=== PATIENT | male | born 1930 | race Caucasian/White ===

== ENCOUNTER → 2017-10-03 | Outpatient (CLI) | payer MEDICARE, OTHER | LOC: M.CT 12:33 | DX: J45.41 Moderate persistent asthma with (acute) exacerbation (principal); J98.4 Other disorders of lung; I25.10 Atherosclerotic heart disease of native coronary artery without angina pectoris; K44.9 Diaphragmatic hernia without obstruction or gangrene ==

== ENCOUNTER 2018-12-03 12:45 | Inpatient (IN) | payer MEDICARE, OTHER ==
[~2018-12-03] VITALS: Ht 175.3 cm; Wt 80.1 kg
[2018-12-03 12:45] VITALS: BP 80/42
[2018-12-03] MEDS ORDERED: FLONASE 0.05%50 MCG NASAL (12:55)
[2018-12-03] MEDS ORDERED: PROSCAR 5MG TABL5 MG PO (12:55)
[2018-12-03] MEDS ORDERED: LASIX 20 MG TAB20 MG PO (12:56)
[2018-12-03] MEDS ORDERED: METFORMIN HCL500 MG PO (12:56)
[2018-12-03] MEDS ORDERED: LISINOPRIL10 MG PO (12:56)
[2018-12-03] MEDS ORDERED: ZOCOR20 MG PO (12:57)
[2018-12-03] MEDS ORDERED: SINGULAIR 10 MG10 M1 PO (12:57)
[2018-12-03] MEDS ORDERED: ZANTAC 150MG T150 MG PO (12:57)
[2018-12-03] MEDS ORDERED: PROAIR HFA8.5 GM PO (12:57)
[2018-12-03] MEDS ORDERED: SYSTANE BALANCE10 ML OPHTHALMIC (12:57)
[2018-12-03] MEDS ORDERED: FLOMAX0.4 MG PO (12:58)
[2018-12-03 13:31] LABS: ABSOLUTE BASOPHILS 0.1 thou/uL (0.0-0.2); ABSOLUTE EOSINOPHILS 0.1 thou/uL (0.0-0.7); ABSOLUTE LYMPHOCYTES 1.1 thou/uL (0.8-5.3); ABSOLUTE MONOCYTES 0.5 thou/uL (0.0-1.2); ABSOLUTE NEUTROPHILS 5.7 thou/uL (1.6-8.1); BASOPHILS 0.9 %; EOSINOPHILS 0.8 %; HEMATOCRIT 32.9 % (42.0-52.0); HEMOGLOBIN 11.4 gm/dL (14.0-18.0); LYMPHOCYTES 14.5 %; MCH 32.6 pg (26.0-34.0); MCHC 34.7 g/dL (28.0-37.0); MONOCYTES 6.7 %; MPV 7.1 fl. (7.2-11.1); NUCLEATED RBCS 0 /100WBC; PLATELET COUNT* 217 thou/uL (150-400); POLYS 77.1 %; RDW-CV 13.5 % (10.5-14.5); WBC 7.4 thou/uL (4.0-11.0)
[2018-12-03 13:39] LABS: ANION GAP 8 mmol/L (7-16); BUN 21 mg/dL (7-18); CALCIUM 8.6 mg/dL (8.5-10.1); CHLORIDE 97 mmol/L (98-107); CO2 29 mmol/L (21-32); CREATININE 1.5 mg/dL (0.6-1.3); GLUCOSE 161 mg/dL (70-99); POTASSIUM 4.2 mmol/L (3.5-5.1); SODIUM 134 mmol/L (136-145)
[2018-12-03 13:41] LABS: INR 1.2
[2018-12-03 13:50] LABS: ALBUMIN 2.8 g/dL (3.4-5.0); ALKALINE PHOSPHATASE 87 U/L (46-116); NT-PRO BRAIN NAT PEPTIDE 251 pg/mL (<300); SGOT 26 U/L (15-37); SGPT 36 U/L (30-65); TOTAL BILIRUBIN 0.9 mg/dL (<0.1-1.0); TOTAL PROTEIN 6.2 g/dL (6.4-8.2); TROPONIN-I LEVEL <0.06 ng/mL (<0.06)
--- NOTE | 2018-12-03 14:33 | EKG ---
[place] [address] ELECTROCARDIOGRAM REPORT Name: HODAN PHILLIPS Room: [place] [address] ADM IN .R.#: [id number] Admission: 12/03/18 Attend Phys: Kingsley Aburto MD Discharge: Date of : 32 Report #: [id number] THIS REPORT FOR: //name// [facility] ED Test Date: 2018-12-03 Test Time: 12:53:19 Pat Name: HODAN PHILLIPS Department: Room: [facility] Gender: M Strategic Marketing Manager: : 1930 Requested By: Estella Watson Order Number: [id number] MD: Chun Ugarte Measurements Intervals Interior Rate: 80 P: 0 FL: 216 QRS: -66 QRSD: 114 T: 60 QT: 384 QTc: 443 Interpretive Statements Sinus rhythm Borderline prolonged FL interval left axis old inferior WA late transition Baseline wander in lead(s) V1,V3 Compared to ECG 12/14/2008 09:54:12 no change Electronically Signed On 12-03-2018 14:33:24 CDT by Chun Ugarte [email or web address] <ELECTRONICALLY SIGNED> By: Chun Ugarte MD, [facility] 12/03/18 1433 [id number] [id number] Chun Ugarte MD, [facility] /EPI
[2018-12-03 17:18] LABS: URINE BILIRUBIN NEGATIVE (Negative); URINE BLOOD 3+ (Negative); URINE CLARITY CLEAR; URINE COLOR YELLOW; URINE GLUCOSE-RANDOM NEGATIVE (Negative); URINE KETONES NEGATIVE (Negative); URINE NITRITE-REFLEX NEGATIVE (Negative); URINE PROTEIN TRACE (Negative); URINE SPECIFIC GRAVITY 1.015 (1.005-1.030); URINE UROBILINOGEN 0.2 E.U./dl (0.2-1.0)
--- NOTE | 2018-12-03 17:18 | NUR ---
I have reviewed the documentation by JUAN REYES from TODAY to 12/03/18 and I concur with it. KIMBERLEY PEREYRA
[2018-12-03 17:19] LABS: URINE LEUKOCYTES-REFLEX 2+ (Negative)
[2018-12-03 17:29] LABS: CRYSTALS None Seen /LPF (None Seen); HYALINE CASTS 0-3 Few /LPF (None Seen); MUCUS None Seen strn/LPF (None Seen); SQUAMOUS 4-10 Moderate /LPF (0-3)
[2018-12-03 17:30] LABS: URINE WBC-REFLEX >25 Many /HPF (0-5)
[2018-12-03 17:33] LABS: BACTERIA-REFLEX 1-9 Few /HPF (None Seen)
--- NOTE | 2018-12-03 19:00 | NUR ---
PT REQUESTS TO LEAVE AGAINST MEDICAL ADVICE. DR. HENSLEY HAS BEEN CONTACTED, STATES PT MAY LEAVE AGAINST MEDICAL ADVICE BUT TO STRONGLY ENCOURAGE PT TO SEE HIS OWN PCP WITHIN THE NEXT 2 DAYS. PT INSTRUCTED OF SAME, VERBALIZED UNDERSTANDING. PT SIGNED AMA FORM, FAMILY AT BEDSIDE TO TAKE PT HOME. SET UP FOR DINNER PT WISHES TO EAT BEFORE GOING HOME. PT'S PRIMARY RN FE NOTIFIED.
[2018-12-03 19:42] VITALS: BP 123/49
[2018-12-04 09:07] LABS: GLYCOHEMOGLOBIN (HGB A1C) 6.1 % (4.8-5.6)
== END 2018-12-03 19:00 | disposition left against medical advice (07) | DRG 312 ==
LOC: M.ERS 12:45 → M.TBA-ER 14:13
PROVIDERS: Personal Emergency Response Attendant; ADMIT Internal Medicine
DX: I95.1 Orthostatic hypotension (principal); I48.91 Unspecified atrial fibrillation; E11.9 Type 2 diabetes mellitus without complications; I50.9 Heart failure, unspecified; H54.62 Unqualified visual loss, left eye, normal vision right eye; H53.9 Unspecified visual disturbance; Z53.21 Procedure and treatment not carried out due to patient leaving prior to being seen by health care provider; I11.0 Hypertensive heart disease with heart failure; Z79.899 Other long term (current) drug therapy

== ENCOUNTER → 2019-02-26 | Outpatient (CLI) | payer MEDICARE, OTHER ==
[~2019-02-26] MED LIST: FLOMAX0.4 MG PO; FLONASE 0.05%50 MCG NASAL; LASIX 20 MG TAB20 MG PO; LISINOPRIL10 MG PO; METFORMIN HCL500 MG PO; PROAIR HFA8.5 GM PO; PROSCAR 5MG TABL5 MG PO; SINGULAIR 10 MG10 M1 PO; SYSTANE BALANCE10 ML OPHTHALMIC; ZANTAC 150MG T150 MG PO; ZOCOR20 MG PO
== END ==
LOC: M.ULTRA 13:00
DX: N50.3 Cyst of epididymis (principal); N43.3 Hydrocele, unspecified; Z88.8 Allergy status to other drugs, medicaments and biological substances